=== PATIENT | male | born 1945 | race Asian ===

== ENCOUNTER 2017-10-24 22:28 | Inpatient (IN) | payer SELFPAY ==
[2017-10-24 22:39] VITALS: BMI 29.5
--- NOTE | 2017-10-24 23:21 | PDOC ---
History of Present Illness - General Chief Complaint: Chest Pain Stated Complaint: PCP SENT Time Seen by Provider: 10/24/17 22:54 - History of Present Illness Initial Comments: 10/24/17 22:59 72 yo M with h/o HLD, DM, HTN, CKD, High lateral wall [place] (2014), CAD ( 3 vessel disease) who p/w CP. This evening patient reports acute onset of sharp L sided CP radiating to L shoulder, L sided neck/jaw, and R shoulder, lasting for approximately 15 minutes while at rest in psychiatrist office. Associated with palpitations, SOB, diaphoresis, lightheadedness ( now resolved). No identifiable triggers or alleviators. Denies F/C, N/V, cough, hemoptysis, orthopnea, PND, leg swelling/pain, CP, SOB, abdominal pain, diarrhea, constipation, urinary complaints, weakness, lightheadedness, sensory changes. PMHx: as noted above. Compliant with medications. Denies h/o [place], stent placement , CABG. No h/o PE/DVT. No h/o malignancy. Cornoary angiopgraphy ( 2014) depicted LAD with 50%, and LCX with 50-70 % occlusion. ROS: as noted above SHx: Denies tobacco use. Social Etoh. Denies IVDA. PMD: Josh Garcia. Past History - Past Medical History Allergies/Adverse Reactions: Allergies Allergy/AdvReac Type Severity Reaction Status Date / Time No Known Allergies Allergy Verified 10/24/17 22:34 Cardiac Disorders: Yes COPD: No - Suicide/Smoking/Psychosocial Hx Smoking History: Never smoked Review of Systems - Review of Systems Comments:: 10/24/17 23:01 GENERAL/CONSTITUTIONAL: No fever or chills. No weakness. HEAD, EYES, EARS, NOSE AND THROAT: No change in vision. No ear pain or discharge. No sore throat. CARDIOVASCULAR:+ chest pain. No shortness of breath RESPIRATORY: No cough, wheezing, or hemoptysis. GASTROINTESTINAL: No nausea, vomiting, diarrhea or constipation. GENITOURINARY: No dysuria, frequency, or change in urination. MUSCULOSKELETAL: No joint or muscle swelling or pain. No neck or back pain. SKIN: No rash NEUROLOGIC: No headache, vertigo, loss of consciousness, or change in strength/ sensation. ENDOCRINE: No increased thirst. No abnormal weight change HEMATOLOGIC/LYMPHATIC: No anemia, easy bleeding, or history of blood clots. ALLERGIC/IMMUNOLOGIC: No hives or skin allergy. *Physical Exam - Vital Signs Last Vital Signs Temp Pulse Resp BP Pulse Ox 98.1 F 53 L 18 182/107 99 10/24/17 22:34 10/24/17 22:34 10/24/17 22:34 10/24/17 22:34 10/24/17 22:34 - Physical Exam Comments: 10/24/17 23:01 GENERAL: Awake, alert, and fully oriented, in no acute distress HEAD: No signs of trauma, normocephalic, atraumatic EYES: PERRLA, EOMI, sclera anicteric, conjunctiva clear ENT: Hearing grossly normal, nares patent, oropharynx clear without exudates. Moist mucosa NECK: Normal ROM, supple, no lymphadenopathy, JVD, or masses LUNGS: No distress, speaks full sentences, clear to auscultation bilaterally HEART: Regular rate and rhythm, normal S1 and S2, no murmurs, rubs or gallops, peripheral pulses normal and equal bilaterally. EXTREMITIES : Normal inspection, Normal range of motion, no edema. No clubbing or cyanosis. NEUROLOGICAL: Cranial nerves II through XII grossly intact. Normal speech, normal gait, no focal sensorimotor deficits SKIN: Warm, Dry, normal turgor, no rashes or lesions noted ED Treatment Course - LABORATORY CBC & Chemistry Diagram: 10/24/17 23:29 10/24/17 23:29 Medical Decision Making - Medical Decision Making 10/24/17 23:30 72 yo M with h/o HLD, DM, HTN, CKD, High lateral wall [place], CAD ( 3 vessel disease ) who p/w CP. BP 182/107, HR 57, AF, A&Ox3. ACS/[place] r/o. R/o PNA. Low risk PE based on weils criteria. No evidence of volume overload. Low suspicion CHF exacerbation. Lung CTA BL. Low suspicion asthma, COPD. Neck pain now resolved, with absent neuro deficits. Unlikely to have carotid dissection. Patient with mutliple cardiac risk factors and anginal equivalency related complaints. Likely admission with tele observation and serial enzyme testing. PMD. Dr Josh Sanchez. ED Course. CBC, CMP, Cardiac Pr, BNP, PT/INR EKG, CXR 10/24/17 23:43 EKG: sinus bradycardia with 1st degree AV block. [place] interval 224. Normal axis. absent RIZWANA, STD, or TWI. 10/24/17 23:[address] Dumont will admit to day [facility] hospitalist. 10/25/17 00:14 CBC: Unremarkable Patient signed out to night team. Dr. Cheney. *DC/Admit/Observation/Transfer - Referrals Referrals: Sherry Moreno MD [Primary Care Provider] - - Patient Instructions Additional Instructions: Please return to the emergency department with any new or worsening symptoms or concerns. Please follow up with your primary care physician within 72 hours. - Post Discharge Activity
[2017-10-24] MEDS ORDERED: ASPIRIN 81 MG CHEWABLE TABLETS PO ONE (23:28)
[2017-10-24] MEDS ORDERED: ASPIRIN COATED 81 MG TABLET.EC ONE (23:33)
[2017-10-24 23:50] LABS: EOS % 5.2 % (0-4.5); HEMATOCRIT 39.6 % (35.4-49); HEMOGLOBIN 13.8 GM/dL (11.7-16.9); LYMPH % 28.4 % (8-40); MCH 32.8 pg (25.7-33.7); MCHC 34.9 g/dl (32.0-35.9); MEAN CELL VOLUME 93.8 fl (80-96); MEAN PLT VOLUME 9.8 fl (7.5-11.1); MONO % 9.5 % (3.8-10.2); NEUT % 55.9 % (42.8-82.8); PLATELET COUNT 152 K/MM3 (134-434); RBC 4.22 M/mm3 (4.00-5.60); RDW 12.6 % (11.9-15.9); WHITE BLOOD COUNT 6.2 K/mm3 (4.0-10.0)
[2017-10-25] LABS: INR 1.07 (0.82-1.09); PROTHROMBIN TIME (PATIENT) 12.1 SEC (9.7-13.0)
--- NOTE | 2017-10-25 00:04 | PDOC ---
Attending Attestation - Resident Resident Name: Jake Heck - ED Attending Attestation I have performed the following: I have examined & evaluated the patient, The case was reviewed & discussed with the resident, I agree w/resident's findings & plan, Exceptions are as noted - HPI HPI: 10/25/17 00:04 72 yo male who experienced chest pain with arm pain,now symptoms resolved -he is visiting from [facility] - Physicial Exam PE: 10/25/17 01:19 wnwd 72 yo male in n acute distress at this time head ncat neck supple,no bruits lungs cta b/l cvs [id number], no rubs,no gallops abd nontender extremities no e/c/c neuro axox3 ,ambulatory skin warm and dry psych appropriate - Medical Decision Making 10/25/17 01:22 72 yo male with known CAD,DM,HTN, p/w cp radiating to arm ekg does not show any acute ischemia, there is sinus bradycardia of 54 bpm w first degree AV block -trop <0.02 10/25/17 01:32 ADMIT telemetry
[2017-10-25 00:12] LABS: ALBUMIN 3.5 g/dl (3.4-5.0); ALK PHOS 43 U/L (45-117); ANION GAP 9 (8-16); BILIRUBIN,TOTAL 0.9 mg/dL (0.2-1.0); BLOOD UREA NITROGEN 27 mg/dL (7-18); CALCIUM 8.7 mg/dL (8.5-10.1); CHLORIDE 107 mmol/L (98-107); CO2 25 mmol/L (21-32); CREATININE 1.8 mg/dL (0.7-1.3); GLUCOSE,RANDOM 114 mg/dL (74-106); POTASSIUM 4.4 mmol/L (3.5-5.1); SGOT/AST 43 U/L (15-37); SGPT/ALT 68 U/L (12-78); SODIUM 141 mmol/L (136-145); TOT PROT 6.4 g/dl (6.4-8.2)
--- NOTE | 2017-10-25 00:20 | PDOC ---
*Physical Exam - Vital Signs Last Vital Signs Temp Pulse Resp BP Pulse Ox 98.1 F 53 L 18 182/107 99 10/24/17 22:34 10/24/17 22:34 10/24/17 22:34 10/24/17 22:34 10/24/17 22:34 10/24/17 23:59 Care endorsed to me by Dr. Heck. 72 YOM with h/o CAD who p/w chest pain onset at rest lasting 15 minutes and radiating to neck and jaw with associated SOB. Pain has resolved. BP 182/107 initially, EKG without ischemic changes, bradycardia with 1st degree AV block. Getting CXR and labs are pending. ED Treatment Course - LABORATORY CBC & Chemistry Diagram: 10/24/17 23:29 10/24/17 23:29 - ADDITIONAL ORDERS Additional order review: 10/24/17 23:29 RBC 4.22 MCV 93.8 MCHC 34.9 RDW 12.6 MPV 9.8 Neutrophils % 55.9 Lymphocytes % 28.4 Monocytes % 9.5 Eosinophils % 5.2 H Basophils % 1.0 - Medications Given in the ED: ED Medications Discontinued Medications Generic Name Dose Route Start Last Admin Trade Name Freq PRN Reason Stop Dose Admin Aspirin 162 mg 10/24/17 23:28 10/24/17 23:49 Asa - PO 10/24/17 23:29 162 mg ONCE ONE Administration Medical Decision Making - Medical Decision Making 10/25/17 01:28 Laboratory Tests 10/24/17 10/24/17 10/24/17 23:29 23:29 23:29 WBC 6.2 RBC 4.22 Hgb 13.8 Hct 39.6 MCV 93.8 MCH 32.8 MCHC 34.9 RDW 12.6 Plt Count 152 MPV 9.8 Absolute Neuts (auto) 3.5 Neutrophils % 55.9 Lymphocytes % 28.4 Monocytes % 9.5 Eosinophils % 5.2 H Basophils % 1.0 Nucleated RBC % 0 PT with INR INR Sodium Potassium Chloride Carbon Dioxide Anion Gap BUN Creatinine Creat Clearance w eGFR Random Glucose Calcium Total Bilirubin AST ALT Alkaline Phosphatase Creatine Kinase 212 Creatine Kinase Index 2.0 CK-MB (CK-2) 4.34 H Troponin I < 0.02 B-Natriuretic Peptide 570.06 H Total Protein Albumin Urine Color Straw Urine Appearance Clear Urine pH 6.0 Ur Specific [place] 1.008 Urine Protein Negative Urine Glucose (UA) Negative Urine Ketones Negative Urine Blood 1+ H Urine Nitrite Negative Urine Bilirubin Negative Urine Urobilinogen Negative Ur Leukocyte Esterase Negative Urine WBC (Auto) <1 Urine RBC (Auto) 1 10/24/17 10/24/17 23:29 23:29 WBC RBC Hgb Hct MCV MCH MCHC RDW Plt Count MPV Absolute Neuts (auto) Neutrophils % Lymphocytes % Monocytes % Eosinophils % Basophils % Nucleated RBC % PT with INR 12.10 INR 1.07 Sodium 141 Potassium 4.4 Chloride 107 Carbon Dioxide 25 Anion Gap 9 BUN 27 H Creatinine 1.8 H Creat Clearance w eGFR 37.49 Random Glucose 114 H Calcium 8.7 Total Bilirubin 0.9 AST 43 H ALT 68 Alkaline Phosphatase 43 L Creatine Kinase Creatine Kinase Index CK-MB (CK-2) Troponin I B-Natriuretic Peptide Total Protein 6.4 Albumin 3.5 Urine Color Urine Appearance Urine pH Ur Specific [place] Urine Protein Urine Glucose (UA) Urine Ketones Urine Blood Urine Nitrite Urine Bilirubin Urine Urobilinogen Ur Leukocyte Esterase Urine WBC (Auto) Urine RBC (Auto) Hospitalist microblogged for admission for the patient. Dr. Alejo spoke with [facility] who is in agreement patient to be admitted to [facility]. Decision to Admit order placed. *DC/Admit/Observation/Transfer - Referrals Referrals: Sherry Moreno MD [Primary Care Provider] - - Patient Instructions Additional Instructions: Please return to the emergency department with any new or worsening symptoms or concerns. Please follow up with your primary care physician within 72 hours. - Post Discharge Activity
[2017-10-25 00:27] LABS: N-TERMINAL BNP 570.06 pg/ml (5-125)
[2017-10-25 00:34] LABS: URINE APPEARANCE CLEAR; URINE BILIRUBIN NEGATIVE (<2.0 mg/dL); URINE BLOOD 1+ (NEGATIVE); URINE COLOR STRAW; URINE GLUCOSE (UA) NEGATIVE (NEGATIVE); URINE KETONE NEGATIVE (NEGATIVE); URINE LEUK ESTERASE NEGATIVE (NEGATIVE); URINE NITRITE NEGATIVE (NEGATIVE); URINE PROTEIN NEGATIVE (NEGATIVE); URINE UROBILINOGEN NEGATIVE mg/dL (0.2-1.0)
--- NOTE | 2017-10-25 01:35 | PDOC ---
*Physical Exam - Vital Signs Last Vital Signs Temp Pulse Resp BP Pulse Ox 98.1 F 53 L 18 182/107 99 10/24/17 22:34 10/24/17 22:34 10/24/17 22:34 10/24/17 22:34 10/24/17 22:34 ED Treatment Course - LABORATORY CBC & Chemistry Diagram: 10/24/17 23:29 10/24/17 23:29 - ADDITIONAL ORDERS Additional order review: Laboratory Results 10/24/17 10/24/17 10/24/17 23:29 23:29 23:29 PT with INR 12.10 INR 1.07 Sodium 141 Potassium 4.4 Chloride 107 Carbon Dioxide 25 Anion Gap 9 BUN 27 H Creatinine 1.8 H Creat Clearance w eGFR 37.49 Random Glucose 114 H Calcium 8.7 Total Bilirubin 0.9 AST 43 H ALT 68 Alkaline Phosphatase 43 L Creatine Kinase 212 Creatine Kinase Index 2.0 CK-MB (CK-2) 4.34 H Troponin I < 0.02 B-Natriuretic Peptide 570.06 H Total Protein 6.4 Albumin 3.5 Urine Color Urine Appearance Urine pH Ur Specific [place] Urine Protein Urine Glucose (UA) Urine Ketones Urine Blood Urine Nitrite Urine Bilirubin Urine Urobilinogen Ur Leukocyte Esterase Urine WBC (Auto) Urine RBC (Auto) 10/24/17 23:29 PT with INR INR Sodium Potassium Chloride Carbon Dioxide Anion Gap BUN Creatinine Creat Clearance w eGFR Random Glucose Calcium Total Bilirubin AST ALT Alkaline Phosphatase Creatine Kinase Creatine Kinase Index CK-MB (CK-2) Troponin I B-Natriuretic Peptide Total Protein Albumin Urine Color Straw Urine Appearance Clear Urine pH 6.0 Ur Specific [place] 1.008 Urine Protein Negative Urine Glucose (UA) Negative Urine Ketones Negative Urine Blood 1+ H Urine Nitrite Negative Urine Bilirubin Negative Urine Urobilinogen Negative Ur Leukocyte Esterase Negative Urine WBC (Auto) <1 Urine RBC (Auto) 1 10/24/17 23:29 RBC 4.22 MCV 93.8 MCHC 34.9 RDW 12.6 MPV 9.8 Neutrophils % 55.9 Lymphocytes % 28.4 Monocytes % 9.5 Eosinophils % 5.2 H Basophils % 1.0 - Medications Given in the ED: ED Medications Discontinued Medications Generic Name Dose Route Start Last Admin Trade Name Freq PRN Reason Stop Dose Admin Aspirin 162 mg 10/24/17 23:28 10/24/17 23:49 Asa - PO 10/24/17 23:29 162 mg ONCE ONE Administration *DC/Admit/Observation/Transfer Diagnosis at time of Disposition: Angina at rest CAD (coronary artery disease) Qualifiers: Coronary Disease-Associated Artery/Lesion type: [place] artery [place] vs. transplanted heart: [place] heart Associated angina: with stable angina Qualified Code(s): I25.118 - Atherosclerotic heart disease of [place] coronary artery with other forms of angina pectoris Diabetes Qualifiers: Diabetes mellitus type: type 2 Diabetes mellitus detention insulin use: without detention use Diabetes mellitus complication status: without complication Qualified Code(s): E11.9 - Type 2 diabetes mellitus without complications Hypertension Qualifiers: Hypertension type: essential hypertension Qualified Code(s): I10 - Essential ( primary) hypertension - Discharge Dispostion Decision to Admit order: Yes - Referrals Referrals: Sherry Moreno MD [Primary Care Provider] - - Patient Instructions Additional Instructions: Please return to the emergency department with any new or worsening symptoms or concerns. Please follow up with your primary care physician within 72 hours. - Post Discharge Activity
--- NOTE | 2017-10-25 01:43 | PN ---
Teaching Attending Note Name of Resident: Shola Gibbs ATTENDING PHYSICIAN STATEMENT I saw and evaluated the patient. I reviewed the resident's note and discussed the case with the resident. I agree with the resident's findings and plan as documented. SUBJECTIVE: Patient is a 72 year old man with PMH of HLD, DM, HTN, CKD, Depression, Anxiety disorder, High lateral wall [place] (2015), CAD (3 vessel disease) who presents with chestpain that started today. /w CP. This evening patient reports acute onset of sharp L sided CP radiating to L shoulder, L sided neck/jaw, and R shoulder, lasting for approximately 15 minutes while at rest in psychiatrist office. Associated with palpitations, SOB, diaphoresis, and lightheadedness. He is now painfree and in no acute distress. OBJECTIVE: Alert and in no acute distress. Vital Signs Period Temp Pulse Resp BP Sys/[place] Pulse Ox Last 24 Hr 98.1 F 53 18 182/107 99 HEENT: No Jaundice, eye redness or discharge, PERRLA, EOMI. Normocephalic, atraumatic. External ears are normal and hearing is grossly intact. No nasal discharge. Neck: Supple, nontender. No palpable adenopathy or thyromegaly. No JVD Chest: Good effort. Clear to auscultation and percussion. Heart: Regular. No S3, rub or murmur Abdomen: Not distended, soft, nontender and no HSM. No rebound or guarding. Normoactive bowel sounds. Ext: Peripheral pulses intact. No leg edema. Skin: Warm and dry. No petechiae, rash or ecchymosis. Neuro: Alert. Oriented x3. CN 2-12 grossly intact. Sensation grossly intact in all four extremities and DTR are symmetric. Abnormal Lab Results 10/24/17 10/24/17 10/24/17 23:29 23:29 23:29 Eosinophils % 5.2 H BUN Creatinine Random Glucose AST Alkaline Phosphatase CK-MB (CK-2) 4.34 H B-Natriuretic Peptide 570.06 H Urine Blood 1+ H 10/24/17 23:29 Eosinophils % BUN 27 H Creatinine 1.8 H Random Glucose 114 H AST 43 H Alkaline Phosphatase 43 L CK-MB (CK-2) B-Natriuretic Peptide Urine Blood Current Medications Generic Name Dose Route Start Last Admin Trade Name Freq PRN Reason Stop Dose Admin Acetaminophen 650 mg 10/25/17 04:18 Tylenol - PO Q4H PRN PAIN Aspirin 81 mg 10/25/17 10:00 Asa - PO DAILY [facility] Atorvastatin Calcium 10 mg 10/25/17 22:00 Lipitor - PO HS [facility] Clopidogrel Bisulfate 75 mg 10/25/17 10:00 Plavix - PO DAILY [facility] Heparin Sodium (Porcine) 5,000 unit 10/25/17 06:00 Heparin - SQ TID [facility] Insulin Aspart 1 vial 10/25/17 07:00 Novolog Vial Sliding Scale - SQ ACHS [facility] Protocol Isosorbide Dinitrate 5 mg 10/25/17 10:00 Isordil - PO BID [facility] Nebivolol 5 mg 10/25/17 10:00 Bystolic - PO DAILY [facility] ASSESSMENT AND PLAN: 1. Chestpain - Patient is known to have CAD so will admit to telemetry to rule out ACS. EKG shows bradycardia (beta nevaeh effect?)with no significant ST-T changes and initial troponin is normal. Will get ECHO, nuclear stress test and cardiology consult. 2. Uncontrolled hypertension - Will restart his usual regimen and strive for normotension especially with coexistent CKD. 3. CKD - Find out if he has had comprehensive nephrologic workup. Refer to nephrology and repeat urinalysis for microscopic hematuria. If persistent, may need further work up. 4. Depression - Continue psychiatric care. 5. DVT prophylaxis - Heparin 5000u sq tid 6. Advance directives - Full code
--- NOTE | 2017-10-25 03:11 | HP ---
CHIEF COMPLAINT: chest pain PCP: Dr. Moreno Historian: pt, EMR. quick mixer operator is pt's psychiatrist HISTORY OF PRESENT ILLNESS: 72M w/ hx of SC (2015), CAD (3 vessel), HTN, HLD, DM, CKD, depression, and anxiety who presents with chest pain. Per pt, he developed sharp, left-sided chest pain for a 15 minute period during his appointment with his psychiatrist. He reports that the pain radiated to his b/l shoulders, neck, and jaw. The pain was associated with palpitations, diaphoresis, and lightheadedness. He states that his symptoms have almost completely resolved since then. He denies fevers, chills, headache, SOB, abdominal pain, n/v/d/c/, and dysuria. Pt has not seen a canvas marker in a year and a half. According to the patient, he was supposed to get a stent placed at the time of his SC in 2014, but it was not done because he had a "kidney infection." He was instructed to obtain a stent later on, but the pt never followed up. Of note, he receives his medications from [facility]. ER course was notable for: (1) creatinine (2) ck-mb (3) BP Recent Travel: Pt recently moved from [place] to [place]. PAST MEDICAL HISTORY: as stated above PAST SURGICAL HISTORY: denies Social History: Smoking: denies Alcohol: social Drugs: denies Pt lives with his in [facility]. He used to work in a [employer] in [place], is now retired. Family History: father- heart disease and DM mother- arthritis Allergies No Known Allergies Allergy (Verified 10/24/17 22:34) HOME MEDICATIONS: REVIEW OF SYSTEMS CONSTITUTIONAL: Absent: fever, chills, diaphoresis, generalized weakness, malaise, loss of appetite, weight change HEENT: Absent: rhinorrhea, nasal congestion, throat pain, throat swelling, difficulty swallowing, mouth swelling, ear pain, eye pain, visual changes CARDIOVASCULAR: Absent: chest pain, syncope, palpitations, irregular heart rate, lightheadedness , peripheral edema RESPIRATORY: Absent: cough, shortness of breath, dyspnea with exertion, orthopnea, wheezing, stridor, hemoptysis GASTROINTESTINAL: Absent: abdominal pain, abdominal distension, nausea, vomiting, diarrhea, constipation, melena, hematochezia GENITOURINARY: Absent: dysuria, frequency, urgency, hesitancy, hematuria, flank pain, genital pain MUSCULOSKELETAL: Absent: myalgia, arthralgia, joint swelling, back pain, neck pain SKIN: Absent: rash, itching, pallor HEMATOLOGIC/IMMUNOLOGIC: Absent: easy bleeding, easy bruising, lymphadenopathy, frequent infections ENDOCRINE: Absent: unexplained weight gain, unexplained weight loss, heat intolerance, cold intolerance NEUROLOGIC: Absent: headache, focal weakness or paresthesias, dizziness, unsteady gait, seizure, mental status changes, bladder or bowel incontinence PSYCHIATRIC: Absent: anxiety, depression, suicidal or homicidal ideation, hallucinations. PHYSICAL EXAMINATION Vital Signs - 24 hr 10/24/17 22:34 Temperature 98.1 F Pulse Rate 53 L Respiratory 18 Rate Blood Pressure 182/107 O2 Sat by Pulse 99 Oximetry (%) GENERAL: elderly male, awake, alert, and fully oriented, in no acute distress. HEENT: NC, AT NECK: no JVD LUNGS: Breath sounds equal, clear to auscultation bilaterally. No wheezes, and no crackles. No accessory muscle use. HEART: Regular rate and rhythm, normal S1 and S2 without murmur, rub or gallop. ABDOMEN: Soft, nontender, not distended, normoactive bowel sounds, no guarding, no rebound, no masses. MUSCULOSKELETAL: 1+ b/l LE edema NEUROLOGICAL: Cranial nerves II-XII intact. Normal speech Laboratory Results - last 24 hr 10/24/17 10/24/17 10/24/17 23:29 23:29 23:29 WBC 6.2 RBC 4.22 Hgb 13.8 Hct 39.6 MCV 93.8 MCH 32.8 MCHC 34.9 RDW 12.6 Plt Count 152 MPV 9.8 Absolute Neuts (auto) 3.5 Neutrophils % 55.9 Lymphocytes % 28.4 Monocytes % 9.5 Eosinophils % 5.2 H Basophils % 1.0 Nucleated RBC % 0 PT with INR INR Sodium Potassium Chloride Carbon Dioxide Anion Gap BUN Creatinine Creat Clearance w eGFR Random Glucose Calcium Total Bilirubin AST ALT Alkaline Phosphatase Creatine Kinase 212 Creatine Kinase Index 2.0 CK-MB (CK-2) 4.34 H Troponin I < 0.02 B-Natriuretic Peptide 570.06 H Total Protein Albumin Urine Color Straw Urine Appearance Clear Urine pH 6.0 Ur Specific [place] 1.008 Urine Protein Negative Urine Glucose (UA) Negative Urine Ketones Negative Urine Blood 1+ H Urine Nitrite Negative Urine Bilirubin Negative Urine Urobilinogen Negative Ur Leukocyte Esterase Negative Urine WBC (Auto) <1 Urine RBC (Auto) 1 10/24/17 10/24/17 23:29 23:29 WBC RBC Hgb Hct MCV MCH MCHC RDW Plt Count MPV Absolute Neuts (auto) Neutrophils % Lymphocytes % Monocytes % Eosinophils % Basophils % Nucleated RBC % PT with INR 12.10 INR 1.07 Sodium 141 Potassium 4.4 Chloride 107 Carbon Dioxide 25 Anion Gap 9 BUN 27 H Creatinine 1.8 H Creat Clearance w eGFR 37.49 Random Glucose 114 H Calcium 8.7 Total Bilirubin 0.9 AST 43 H ALT 68 Alkaline Phosphatase 43 L Creatine Kinase Creatine Kinase Index CK-MB (CK-2) Troponin I B-Natriuretic Peptide Total Protein 6.4 Albumin 3.5 Urine Color Urine Appearance Urine pH Ur Specific [place] Urine Protein Urine Glucose (UA) Urine Ketones Urine Blood Urine Nitrite Urine Bilirubin Urine Urobilinogen Ur Leukocyte Esterase Urine WBC (Auto) Urine RBC (Auto) ASSESSMENT/PLAN: 72M w/ hx of SC (2014), CAD (3 vessel), HTN, HLD, DM, CKD, depression, and anxiety who presents with chest pain. #chest pain -pt has risk factors for and HPI consistent with SC. However, 1st set of trops negative, and EKG without signs of ischemia. CK-MB mildly elevated at 4.34. -EKG: sinus bradycardia with 1st degree AV block -f/u repeat trops and EKG -cardiology consulted, Dr. Thrasher -per PCP, Dr. Moreno, obtain nuclear perfusion test -cardiac telemetry -tylenol PRN -continue home ASA and plavix -confirm all home meds. Not all medications ordered because unknown dosages. #CKD -creatinine of 1.8, unknown baseline -monitor creatinine #hematuria on UA -continue to monitor #DM -BGM ACHS -ISS -home metformin and and voglibose held #HTN -BP of 182/107 and HR of 53 in ED. Given a dose of hydralazine. -continue home bystolic, metoprolol succinate, isosorbide dinitrate, telvisartan #HLD -continue home atorvastatin #FEN/ppx -po fluids -electrolytes wnl -NPO -no GI ppx indicated -heparin 5000U TID #Dispo -admit to obs/tele Case discussed with attending, Dr. Medellin. -Shola Gibbs MD PGY1 Visit type - Emergency Visit Emergency Visit: Yes Care time: The patient presented to the Emergency Department on the above date and was hospitalized for further evaluation of their emergent condition. - New Patient This patient is new to me today: Yes Date on this admission: 10/25/17 - Critical Care Critical Care patient: No Hospitalist Screening - Colonoscopy Questionnaire Colonoscopy Questionnaire: Colonoscopy Questionnaire - Patient: 50 - 75 years old and never had a screening colonoscopy: Unknown History of colon or rectal polyps, or CA: Unknown History of IBD, Crohn's disease or UC: Unknown History of abdominal radiation therapy as a child: Unknown - Relative: 1 with colon or rectal CA, or polyps at age 60 or younger: Unknown Colon or rectal CA diagnosed at age 45 or younger: Unknown Multiple relatives with colon or rectal CA: Unknown - Outcome: Screening Result: Negative Screen
[2017-10-25] MEDS ORDERED: ACETAMINOPHEN 325 MG TABLET (FP) PO PRN (04:18)
[2017-10-25] MEDS: hydrALAZINE HCL 20 MG/ML VIAL IVPUSH ONE ×2 (04:41→04:52)
[2017-10-25] MEDS ORDERED: hydrALAZINE HCL 20 MG/ML VIAL ONE (04:44)
[2017-10-25] MEDS: HEPARIN NA (PORCINE) 5,000 UNITS/ML 1ML VIAL SQ SCH ×2 (06:05→14:00)
[2017-10-25 07:16] LABS: BASO % 1.1 % (0-2.0); EOS % 4.4 % (0-4.5); HEMATOCRIT 40.2 % (35.4-49); LYMPH % 29.4 % (8-40); MCH 32.6 pg (25.7-33.7); MCHC 34.8 g/dl (32.0-35.9); MEAN CELL VOLUME 93.8 fl (80-96); MEAN PLT VOLUME 9.8 fl (7.5-11.1); MONO % 7.1 % (3.8-10.2); PLATELET COUNT 141 K/MM3 (134-434); RBC 4.28 M/mm3 (4.00-5.60); RDW 12.9 % (11.9-15.9); WHITE BLOOD COUNT 7.6 K/mm3 (4.0-10.0)
[2017-10-25 07:36] LABS: CHLORIDE 107 mmol/L (98-107); SODIUM 140 mmol/L (136-145)
[2017-10-25] MEDS: INSULIN SLIDING SCALE (NOVOLOG) 1 VIAL SQ SCH ×3 (08:44→16:54)
[2017-10-25 08:53] LABS: ALBUMIN 3.7 g/dl (3.4-5.0); ALK PHOS 43 U/L (45-117); BILIRUBIN,TOTAL 1.2 mg/dL (0.2-1.0); BLOOD UREA NITROGEN 28 mg/dL (7-18); CALCIUM 8.8 mg/dL (8.5-10.1); CREATININE 1.6 mg/dL (0.7-1.3); GLUCOSE,RANDOM 101 mg/dL (74-106); TOT PROT 6.7 g/dl (6.4-8.2)
[2017-10-25 08:59] LABS: POTASSIUM 4.8 mmol/L (3.5-5.1)
[2017-10-25 09:00] LABS: SGOT/AST 46 U/L (15-37)
[2017-10-25 09:25] VITALS: TEMP 97.5
[2017-10-25 09:29] LABS: ANION GAP 9 (8-16); CO2 24 mmol/L (21-32); SGPT/ALT 65 U/L (12-78)
[2017-10-25] MEDS ORDERED: ISOSORBIDE DINITRATE 5 MG TABLET PO SCH (10:00)
[2017-10-25] MEDS ORDERED: NEBIVOLOL 5 MG TABLET (FP) PO SCH (10:00)
[2017-10-25] MEDS ORDERED: CLOPIDOGREL BISULFATE 75 MG TABLET (FP) PO SCH (10:00)
[2017-10-25] MEDS ORDERED: ASPIRIN 81 MG CHEWABLE TABLETS PO SCH (10:00)
[2017-10-25] MEDS ORDERED: amLODIPine BESYLATE 5 MG TABLET (FP) ONE (10:19)
[2017-10-25] MEDS ORDERED: amLODIPine BESYLATE 5 MG TABLET (FP) PO ONE (10:30)
--- NOTE | 2017-10-25 10:56 | PN ---
Progress Note (short form) - Note Progress Note: Chief Complaint: Events noted, notes reviewed, chest pain syndrome in a patient with known CAD angina pectoris History of Present Illness: Seen and examined in the ICU. Full consult dictated - Current Medication List Current Medications: Current Medications Acetaminophen (Tylenol -) 650 mg PO Q4H PRN PRN Reason: PAIN LEVEL 1-5 Aspirin (Asa -) 81 mg PO DAILY [facility] Last Admin: 10/25/17 10:24 Dose: 81 mg Atorvastatin Calcium (Lipitor -) 10 mg PO HS [facility] Clopidogrel Bisulfate (Plavix -) 75 mg PO DAILY [facility] Last Admin: 10/25/17 10:25 Dose: 75 mg Heparin Sodium (Porcine) (Heparin -) 5,000 unit SQ TID [facility] Last Admin: 10/25/17 06:05 Dose: 5,000 unit Insulin Aspart (Novolog Vial Sliding Scale -) 1 vial SQ ACHS [facility]; Protocol Last Admin: 10/25/17 08:44 Dose: Not Given Isosorbide Dinitrate (Isordil -) 5 mg PO BIDISORDIL [facility] Last Admin: 10/25/17 10:24 Dose: 5 mg Nebivolol (Bystolic -) 5 mg PO DAILY [facility] Last Admin: 10/25/17 10:24 Dose: Not Given Review of Systems - Review of Systems Constitutional: denies: Chills, Fever Cardiovascular: As noted above Respiratory: denies: Cough or Sputum Production Gastrointestinal: denies: Nausea, Vomiting, Diarrhea, Constipation Or abdominal discomfort Neurological: reports: Weakness. denies: Headache - Objective Vital Signs: Last Vital Signs Temp Pulse Resp BP Pulse Ox 97.5 F L 50 L 20 189/92 100 10/25/17 09:24 10/25/17 10:25 10/25/17 10:25 10/25/17 10:25 10/25/17 09:24 Intake & Output 10/22/17 10/23/17 10/24/17 10/25/17 23:59 23:59 23:59 23:59 Weight 211 lb 10.3 oz Neck: Supple Negative JVD No Bruit Cardiovascular: S1 S2 regular rate and rhythm grade 1/6 MITCH Respiratory: Clear to A&P Gastrointestinal: Soft Benign Normal Bowel Sounds Ext: No Edema Labs: Troponin, BNP 10/24/17 10/25/17 23:29 06:08 Troponin I < 0.02 < 0.02 B-Natriuretic Peptide 570.06 H CBC, BMP 10/25/17 06:08 10/25/17 06:08 INR, PTT INR 1.07 (0.82-1.09) 10/24/17 23:29 Assessment/Plan 1. Chest pain syndrome clinical presentation is consistent CAD history of DC angina pectoris, established disease treated medically 2. Diastolic LV dysfunction with class 0 NYHA classification LV failure 3. HTN, labile blood pressure 4. DM 5. Hypercholesterolemia 6. CKD 7. History of hyperurecemia PLAN: 1. Continue B-Blockers, Toprol XL or Bystolic 2. Continue ARBS 3. Agree with the addition of Norvasc 4. Continue Nitrates +/- Ranexa 5. Continue ASA and Plavix 6. Continue Lipitor 7. Echocardiography to evaluate LV size and function 8. Pharmacologic Lexiscan MPI study for evaluation of ischemic burden, discussed in detail with the patient Krysten Garcia MD
[2017-10-25] MEDS ORDERED: ISOSORBIDE MONONITRATE 30 MG TAB.SR.24H (FP) PO SCH (11:30)
[2017-10-25] MEDS ORDERED: VALSARTAN 160 MG TABLET (UD) PO SCH (11:30)
--- NOTE | 2017-10-25 12:14 | EKG ---
Test Reason : Blood Pressure : / mmHG Vent. Rate : 047 BPM Atrial Rate : 047 BPM P-R Int : 238 ms QRS Dur : 086 ms QT Int : 450 ms P-R-T Axes : 052 029 093 degrees QTc Int : 398 ms SINUS BRADYCARDIA WITH 1ST DEGREE A-V BLOCK WITH PREMATURE ATRIAL COMPLEXES IN A PATTERN OF BIGEMINY ABNORMAL QRS-T ANGLE, CONSIDER PRIMARY T WAVE ABNORMALITY T WAVE ABNORMALITY, CONSIDER LATERAL ISCHEMIA ABNORMAL ECG NO PREVIOUS ECGS AVAILABLE Confirmed by MD JAIME, LEIGH ANN ([id number]) on 10/25/2017 12:13:50 PM Referred By: Confirmed By:LEIGH ANN SANDOVAL MD
[2017-10-25] MEDS ORDERED: REGADENOSON 0.4 MG/5 ML PRE-FILLED SYRINGE IVPUSH ONE ×2 (12:30→13:29)
--- NOTE | 2017-10-25 13:15 | PN ---
Teaching Attending Note Name of Resident: Lashae Palomares ATTENDING PHYSICIAN STATEMENT I saw and evaluated the patient. I reviewed the resident's note and discussed the case with the resident. I agree with the resident's findings and plan as documented. SUBJECTIVE: No fever or chills. No Cp at time of evaluation around 10 am reports having CAD , was supposed to have cath in [place] in 2013 but he never followed. he is on multiple medications which he gets form [facility] and pne of them ( Bystoic ) , was given to him by a friend who is not a doctor . denies CP x 2 years now . reports pain with walking yesterday which lasted 15 min . reports cr in [place] 1.5 in 2014 OBJECTIVE: NAD , pleasant and cooperative CV; RRR, no JVD Lungs: CTAB Abd: soft, NT, ND , NL BS Ext: no edema , no erythema ASSESSMENT AND PLAN: 72 y/o man with h/o CAD ( was supposed to get cath but never followed with his card ) , HTN, DM , CKD 9 cr 1.5 in 2014) , depression , [place], nephrolisthiasis , s/p L nephrostomy tube inpat. He presented with CP . 1- CP : suspicion for angina, given history and description . ? unstable angina EKG with no ischemic changes and 1st degree AV block. trop Nl x 2 luis fernando at 50 and BP in 190s when seen. gave 5 of Norvasc and BP improved - control BP - d/w card : Liza scan , to determine need for cath - mixture of medications form [facility] ,some of them prescribed by non physicians . does not follow with PCP or card here x 3 years - cont ASA and plavix - imdur and valsartan - Bystolic , monitor HR - if needed can cont norvasc - echo pending 2- CKD , per him his R kidney is shrunk . Cr was 1.5 in 2015 in [place] . - monitor renal function on ARB 3- HTN urgency: - valsaratan, imdur and bystolic - if needed norvasc can be continued 4- dispo : depends on stress test results
--- NOTE | 2017-10-25 13:15 | CONS ---
DATE OF CONSULTATION: 10/25/2017 REQUESTING PHYSICIAN: Hospitalist service. CHIEF COMPLAINT: Chest pain. A 72-year-old male of [place] descent with known history of coronary artery disease status post myocardial infarction, angina pectoris, diastolic left ventricular dysfunction with class 0 [place] Heart Association classification left ventricular failure, hypertensive cardiovascular disease, diabetes mellitus, hypercholesterolemia, chronic kidney disease, hyperuricemia, who presented to [facility] Emergency Room with chest discomfort. Patient, as noted above, has a history of myocardial infarction while he was in [place]. At which point, cardiac catheterization was performed. Obstructive disease was noted, but no intervention was performed, related to his chronic kidney disease. Treated medically for the last several years. He presented to the emergency room with sudden onset of retrosternal chest discomfort with radiation to the back and both shoulders. Symptoms subsequently subsided spontaneously. Patient denied any associated diaphoresis. Patient reports dyspnea with moderate physical exertion. Patient denies any orthopnea, paroxysmal nocturnal dyspnea, or peripheral edema. Patient denies any palpitations, dizziness, lightheadedness, or syncope. Patient did not have any evidence of acute myocardial infarction by EKG criteria or cardiac biochemical markers. PAST MEDICAL HISTORY: Coronary artery disease post myocardial infarction, established coronary artery disease, angina pectoris, diastolic left ventricular dysfunction with class 0 [place] Heart [employer] classification left ventricular failure, hypertensive cardiovascular disease, diabetes mellitus, hypercholesterolemia, chronic kidney disease, hyperuricemia. SOCIAL HISTORY: Nonsmoker. FAMILY HISTORY: Positive for coronary artery disease. ALLERGIES: None reported. MEDICAL THERAPY AT HOME: Included Bystolic therapy which was initiated yesterday by his primary care provider at 5 mg once daily. In addition, patient is on Plavix 75 mg once daily, sublingual nitroglycerin as needed, Voglitab 0.3 mg twice a day, oral hypoglycemic agent, metoprolol succinate 50 mg once a day, Lipitor 10 mg once a day, febuxostat 40 mg once a day for hyperuricemia management, angiotensin receptor nevaeh at 40 mg once daily, and aspirin at 75 mg once daily. REVIEW OF SYSTEMS: Head and Neck: Denies headache, photophobia, blurring of vision. Respiratory: No cough or sputum production. Cardiovascular: As noted above. Gastrointestinal: Denies nausea, vomiting, diarrhea, abdominal discomfort. Genitourinary: No symptoms reported. Musculoskeletal: No symptoms reported. PHYSICAL EXAMINATION: Vital Signs: Blood pressure is 189/92 mmHg. Pulse rate is 50 beats per minute. Head and Neck: Pupils equal and reactive to light and accommodation. Extraocular muscles are intact. Anicteric sclerae. Negative JVD. No bruit appreciated. Chest: Clear to auscultation and percussion. Cardiovascular: S1 and S2. Regular. A grade 1/6 systolic ejection murmur. No clicks or gallops. Abdomen: Soft, benign. Normoactive bowel sounds. Extremities: Negative edema. Intact distal pulses. No calf tenderness. Electrocardiogram revealed sinus bradycardia with first-degree AV block and premature supraventricular contraction with nonspecific T-wave abnormality. Troponin less than 0.02. CBC revealed a white cell count of 7.6, hemoglobin 14.0, platelet count 141. Basic metabolic profile revealed sodium 140, potassium 4.8, BUN 28, creatinine 1.6, glucose 101. INR 1.07. ASSESSMENT: 1. Chest pain syndrome. Clinical presentation consistent with coronary artery disease. History of myocardial infarction, angina pectoris, established disease, treated medically. 2. Diastolic left ventricular dysfunction with class 0 [place] Heart Association classification left ventricular failure. 3. Hypertensive cardiovascular disease, not at goal. 4. Diabetes mellitus. 5. Hypercholesterolemia. 6. Chronic kidney disease. 7. History of hyperuricemia. RECOMMENDATION: 1. Continuation of beta-blockers, Toprol-XL or Bystolic therapy. 2. Continuation of angiotensin receptor nevaeh therapy. 3. Agree with the addition of Norvasc therapy. 4. Continuation of nitrate therapy plus/minus Ranexa. 5. Continuation of aspirin and Plavix therapy. 6. Continuation of Lipitor therapy. 7. Echocardiography to evaluate LV size and function. 8. Pharmacologic Lexiscan myocardial perfusion imaging study for evaluation of ischemic burden discussed in detail with the patient. Thank you for the kind referral. MIGUEL FUENTES M.D. MAHAD/[id number]
[2017-10-25 15:53] LABS: CHOLESTEROL 135 mg/dL (50-200); TRIGLYCERIDES 73 mg/dL (35-160)
[2017-10-25 15:55] LABS: HDL CHOLESTEROL 50 mg/dL (40-60)
[2017-10-25] MEDS ORDERED: HEMOQUE TEST 1 EACH EACH ONE (16:47)
[2017-10-25 17:59] VITALS: BP 144/85; PULSE 57
--- NOTE | 2017-10-25 17:59 | EKG ---
Test Reason : Blood Pressure : / mmHG Vent. Rate : 054 BPM Atrial Rate : 054 BPM P-R Int : 224 ms QRS Dur : 090 ms QT Int : 424 ms P-R-T Axes : 062 048 094 degrees QTc Int : 402 ms SINUS BRADYCARDIA WITH 1ST DEGREE A-V BLOCK OTHERWISE NORMAL ECG NO PREVIOUS ECGS AVAILABLE Confirmed by MD JAIME, LEIGH ANN ([id number]) on 10/25/2017 5:58:47 PM Referred By: Confirmed By:LEIGH ANN SANDOVAL MD
--- NOTE | 2017-10-25 21:12 | DS ---
Physical Exam: SUBJECTIVE: Patient seen and examined at bedside. Overnight, with chest pain radiating to the back. Was supposed to have stent placed for past NE, however did not follow up. Received meds from [place], [place]. Today, states that his chest pain has resolved. Denies palpitations, or BROOKS. OBJECTIVE: Vital Signs Period Temp Pulse Resp BP Sys/Polanco Pulse Ox Last 24 Hr 97.5 F-98.1 F 50-57 18-20 144-199/75-107 97-100 PHYSICAL EXAM GENERAL: The patient is awake, alert, and fully oriented, in no acute distress. HEAD: Normal with no signs of trauma. EYES: PERRL, extraocular movements intact, sclera anicteric, conjunctiva clear. ENT: Ears normal, nares patent, oropharynx clear without exudates, moist mucous membranes. NECK: Trachea midline, supple. LUNGS: Breath sounds equal, clear to auscultation bilaterally, no wheezes, no crackles, no accessory muscle use. HEART: Regular rate and rhythm, S1, S2 without murmur, rub or gallop. ABDOMEN: Soft, obese nontender, nondistended, normoactive bowel sounds, no guarding, no rebound EXTREMITIES: 2+ pt pulses, warm, well-perfused, no edema. NEUROLOGICAL: Cranial nerves II through XII grossly intact. Normal speech PSYCH: Normal mood, normal affect. SKIN: Warm, dry, normal turgor, no rashes or lesions noted. LABS 10/24/17 10/25/17 10/25/17 23:29 06:08 06:08 Troponin I < 0.02 < 0.02 B-Natriuretic Peptide 570.06 H Triglycerides 73 Cholesterol 135 Total LDL Cholesterol 88 HDL Cholesterol 50 10/24/17 10/24/17 10/25/17 23:29 23:29 06:08 BUN 27 H 28 H Creatinine 1.8 H 1.6 H Random Glucose 114 H 101 AST 43 H 46 H ALT 68 65 CK-MB (CK-2) 4.34 H 10/25/17 06:08 ALT CK-MB (CK-2) 3.032 IMAGING/TESTS 10/24/17: CXR: no acute pathology 10/24/17: EKG: sinus luis fernando with 1st degree AV block, Qtc 402ms, vent rate 54bpm. no other ekgs available for comparison. 10/25/17: EKG: sinus luis fernando with 1st degree AV block with premature atrial complexes in pattern of bigeminy. lateral ischemia 10/25/17: ECHO: no pericardial effusion, mild MR, trace TR, trace pulmonic valvular regurg. trace AR, RV and LV systolic fnc grossly normal 10/25/17: Lexiscan myocardial perfusion imaging: in the stress images, there is a large size and moderately decreased tracer concentration in the lateral wall and its adjacent inferolateral wall. in resting images, the lateral and inferolateral wall defects are reversible, suggesting large size and moderate severity stress-induced ischemia. the gated study shows normal left ventricular size, wall motion, and systolic function. the calculated ventricular EF is 54%. HOSPITAL COURSE: Date of Admission:10/25/17 Date of Discharge: 10/25/17 Admit diagnosis: chest pain suspicious for angina 72M w/ hx of NE (2014), CAD (3 vessel), HTN, HLD, DM, CKD, depression, and anxiety who presents with chest pain. Per pt, he developed sharp, left-sided chest pain for a fifteen minute period during his appointment with his psychiatrist. He reports that the pain radiated b/l to his shoulders, neck, and jaw. The pain was associated with palpitations, diaphoresis, and lightheadedness. His symptoms have almost completely resolved since then. Pt has not seen a sales enablement consultant in a year and a half. He was supposed to get a stent placed at the time of his NE in 2014, but it was not done because he had a "kidney infection." He was instructed to obtain a stent later on, but the pt never followed up. Of note, he receives his medications from [place]. Pt admitted for chest pain suspicious for angina. After admission, pt seen by cardiology for medication optimization given angina picture. He was recommended to continue on aspirin 81mg qd, plavix 75mg qd, lipitor 10mg qd, metoprolol succinate 50mg qd. Isosorbide mononitrate 30mg qd, valsartan 160mg qd, and amlodipine 5mg qd were added to his regimen. He was recommended to stop bystolic, talmesartan and uloric. Pt underwent lexiscan imaging which revealed large size and moderate severity stress-induced ischemia. Pt without insurance and unable to pay for transfer and cath procedure. D/c home on medical management with recommended follow-up with cardio , and Dr. Lisa PCP. Information explained thoroughly to pt by team. Minutes to complete discharge: 46 Discharge Summary Reason For Visit: CORONARY ARTERY DISEASE,ANGINA AT REST Condition: Improved - Instructions Diet, Activity, Other Instructions: You were in the hospital because you had chest pain. While you were here, you were seen by a sales enablement consultant (heart doctor) and your medications were adjusted. You also had a scan done to check the blood flow of your heart, which showed disruption in flow to the sorenson of your heart. Please work on getting insurance immediately so you can receive treatment soon. Your visit -You were seen by the medicine team, cardiology team Medications -You are being sent home on the following medications for your heart. Make sure you take these daily. These medications will be sent to [facility], [place], [place]. -aspirin 81mg daily -plavix 75mg daily -lipitor 10mg daily -isosorbide mononitrate (Imdur) 30mg daily -metoprolol succinate 50mg daily -valsartan (diovan) 160mg daily -amlodipine 5mg daily -continue your diabetes medicine as you were taking before -Please be compliant with your medications Lifestyle -Eat a low carbohydrate, low fat diet. -monitor your blood pressure consistently. And make a log of the numbers and present it to your doctor on your next visit. (you already have a blood pressure monitoring machine as you told us) -Monitor your blood sugar using your machine as well. Keep a log and present this to your doctor on your next visit. Medication changes -Do not take bystolic (nebivolol). Instead continue to take metoprolol succinate (above). -Do not take talmesartan. You are being put on valsartan instead as above. -Do not take febuxostat. (Uloric) Follow-up -It is very important that you follow-up at the following: -Follow up with your primary care doctor, Dr. Moreno in a week -Or follow up with: [facility] [place]: [address] [place] [address] phone # [phone] -Office of Dr. Juan- sales enablement consultant- this week Important If you develop chest pain, please go to the hospital. We hope you feel better soon. Referrals: Krysten Garcia MD [Staff Physician] - 1 Week Sherry Moreno MD [Primary Care Provider] - 1 Week Disposition: HOME - Home Medications Comprehensive Discharge Medication List: Ambulatory Orders Amlodipine Besylate 5 mg PO DAILY #14 tablet 10/25/17 Aspirin [ASA -] 81 mg PO DAILY #14 tab.chew 10/25/17 Atorvastatin Ca [Lipitor] 10 mg PO HS #14 tablet 10/25/17 Clopidogrel Bisulfate [Plavix -] 75 mg PO DAILY #14 tablet 10/25/17 Isosorbide Mononitrate [Imdur -] 30 mg PO DAILY 14 Days #14 cap 10/25/17 Metoprolol Succinate 50 mg PO DAILY #14 tab.er.24h 10/25/17 Telmisartan 40 mg PO BID #60 tablet 10/25/17 This patient is new to me today: Yes Date on this admission: 10/25/17 Emergency Visit: No Critical Care patient: No - Discharge Referral Referred to [facility] No
[2017-10-25] MEDS ORDERED: ATORVASTATIN CA 10 MG TABLET (FP) PO SCH (22:00)
== END 2017-10-25 18:35 | disposition home or self-care (01) | DRG 198 ==
LOC: JER 22:28 → JERBED 10-25 01:35
PROVIDERS: ADMIT Internal Medicine; ATTEND Internal Medicine
DX: I25.119 Atherosclerotic heart disease of native coronary artery with unspecified angina pectoris (principal); I12.9 Hypertensive chronic kidney disease with stage 1 through stage 4 chronic kidney disease, or unspecified chronic kidney disease; E11.22 Type 2 diabetes mellitus with diabetic chronic kidney disease; N18.9 Chronic kidney disease, unspecified; F41.8 Other specified anxiety disorders; R07.89 Other chest pain; R31.9 Hematuria, unspecified; E78.5 Hyperlipidemia, unspecified; I16.0 Hypertensive urgency
CPT/HCPCS: 36415; 71045-TC-FY; 78452-TC; 80053; 80061; 81003; 81015; 82550; 82553; 82962; 83721; 83880; 84484; 85025; 85610; 93005; 93010; 93017; 93306-TC; 99285-25; A9502; J1644; J2785